=== PATIENT | female | born 1940 | race Caucasian/White ===

== ENCOUNTER 2017-08-06 13:47 | Observation (INO) | payer MEDICARE, OTHER ==
[2017-08-06 14:20] LABS: #Monocytes 0.9 thou/uL (0.11-0.59); #Neutrophils 6.7 thou/uL (1.40-6.50); %Basophils 0.3 % (0.0-1.0); %Eosinophils 0.5 % (0.0-10.0); %Lymphocytes 20.4 % (21.0-51.0); %Monocytes 9.3 % (0.0-10.0); %Neutrophils 69.5 % (42.0-75.0); Hemoglobin 13.5 g/dL (12.0-16.0); Mean Corpuscular HGB CONC 32.5 g/dL (32.0-36.0); Mean Corpuscular Hemoglobin 26.6 pg (27.0-31.0); Mean Platelet Volume 9.1 fL (7.4-10.4); Platelet Count 223 thou/uL (130-400); RBC Distribution Width 16.6 % (11.5-14.5); Red Blood Cell (RBC) Count 5.05 mill/uL (4.20-5.40); White Blood Cell (WBC) Count 9.6 thou/uL (4.8-10.8)
[2017-08-06 14:40] LABS: ALT (SGPT) 11 U/L (8-55); AST (SGOT) 15 U/L (5-34); Albumin 4.1 g/dL (3.4-4.8); Alkaline Phosphatase 169 U/L (40-150); Anion Gap 16 mmol/L (10-20); BUN (Urea Nitrogen) 15 mg/dL (9.8-20.1); Bilirubin, Total 0.4 mg/dL (0.2-1.2); CK (CPK) 34 U/L (29-168); Calc. Creatinine Clearance 0 mL/min (70-130); Calcium 10.2 mg/dL (7.8-10.44); Carbon Dioxide 22 mmol/L (23-31); Chloride 103 mmol/L (98-107); Estimated GFR-MDRD 50; Globulin 3.6 g/dL (2.4-3.5); Glucose 103 mg/dL (83-110); Lipase 9 U/L (8-78); Potassium 4.2 mmol/L (3.5-5.1); Protein, Total 7.7 g/dL (6.0-8.3); Sodium 137 mmol/L (136-145)
[2017-08-06 14:43] LABS: CKMB 0.5 ng/mL (0-6.6); Troponin I Less than 0.010 ng/mL (< 0.028)
[2017-08-06] MEDS ORDERED: Nitroglycerin 2% Ointment 1 INCH/1 GM Packet ONE ×2 (14:51→14:54)
[2017-08-06] MEDS ORDERED: ISOVUE-370 76%-LOCM 1 ML ONE (15:09)
--- NOTE | 2017-08-06 15:28 | RAD ---
FRONTAL RADIOGRAPH CHEST: 08/06/2017 HISTORY: Chest pain. COMPARISON: None. FINDINGS: There is increased linear interstitial density noted bilaterally. There is atherosclerotic calcifica tion of the aortic arch. There is a total shoulder arthroplasty on the left. No pneumothorax, pleur al fluid, lobar consolidation, or alveolar edema. Mild asymmetric increased linear density is noted in the lateral left base, suggesting volume loss or scar. IMPRESSION: No lobar consolidation or alveolar edema. POS: NOMI
[2017-08-06] MEDS ORDERED: Dextrose 50% Abboject 50 ML SYRINGE SLOW IVP PRN (16:04)
[2017-08-06] MEDS ORDERED: Acetaminophen 325 MG TAB PO PRN (16:04)
[2017-08-06] MEDS ORDERED: Nitroglycerin 0.4 MG TAB (25 Tab Bottle) PO PRN (16:04)
[2017-08-06] MEDS ORDERED: Guaifenesin DM 100-10/5 ML UDCUP PO PRN (16:04)
[2017-08-06] MEDS ORDERED: Dextrose 5% in Water 1,000 ML IV PRN (16:04)
--- NOTE | 2017-08-06 16:22 | HP ---
REASON FOR ADMISSION: Chest pain. HISTORY OF PRESENT ILLNESS: The patient gives history of left-sided chest pain with radiation to the back which started 4 or 5 days back. This has been progressively getting worse. Also, the pain las ts for 5-10 seconds and it is a sharp stabbing pain. The intensity of pain is around 10/10 when it c omes on. There are no aggravating or relieving factors. Has chronic cough due to her smoking habit. No complaints of fever. Has not had any prior cardiac workup per patient. She normally ambulates very minimally inside the house. PAST MEDICAL AND SURGICAL HISTORY: Diabetes mellitus type 2, COPD, right knee replacement, left shou lder replacement, back surgery for disk related issue, prior lap band surgery with removal, obesity. CURRENT MEDICATIONS: Metformin 500 mg p.o. twice daily, Lantus 32 units subcutaneously daily, NovoLo g 14 units subcu 3 times daily, levothyroxine unknown dose, Myrbetriq 25 mg daily. ALLERGIES: No known drug allergies. PERSONAL HISTORY: Smokes one pack a day and has been doing so for the last 50 years. No complaints of alcohol or drugs. Lives with her of 45 years. FAMILY HISTORY: Mother at the age of 31 years. She likely of uterine or ovarian cancer. Father at the age of 77 years. He has had history of pericardial effusion. CODE STATUS: FULL. REVIEW OF SYSTEMS: The following complete review of systems was negative, unless otherwise mentioned in the HPI or below: Constitutional: Weight loss or gain, ability to conduct usual activities. Skin: Rash, itching. Eyes: Double vision, pain. ENT/Mouth: Nose bleeding, neck stiffness, pain, tenderness. Cardiovascular: Palpitations, dyspnea on exertion, orthopnea. Respiratory: Shortness of breath, wheezing, cough, hemoptysis, fever or night sweats. Gastrointestinal: Poor appetite, abdominal pain, heartburn, nausea, vomiting, constipation, or diarr hea. Genitourinary: Urgency, frequency, dysuria, nocturia. Musculoskeletal: Pain, swelling. Neurologic/Psychiatric: Anxiety, depression. Allergy/Immunologic: Skin rash, bleeding tendency. PHYSICAL EXAMINATION: GENERAL: The patient is a 76-year-old female who is currently not in any acute distress. VITAL SIGNS: Blood pressure 164/80, pulse 88 per minute, respiratory rate 20 per minute, temperature 98.8 degrees Fahrenheit, and saturating 92% on room air. NECK: Supple, no elevated JVD. EYES: Extraocular muscles intact. Pupils reacting to light. ORAL CAVITY: Mucous membranes are moist. No exudates or congestion. CARDIOVASCULAR SYSTEM: S1, S2 heard. Regular rhythm. RESPIRATORY SYSTEM: Air entry 1+ bilateral. Scattered wheezes plus bilaterally. ABDOMEN: Soft, bowel sounds heard. No tenderness, rigidity or guarding. EXTREMITIES: Mild peripheral edema, no calf tenderness. VASCULAR SYSTEM: Peripheral pulses 1+ bilateral, no ischemic ulcerations or gangrene. CENTRAL NERVOUS SYSTEM: No gross focal deficits seen. Patient is alert, awake, and oriented well. PSYCHIATRIC SYSTEM: The patient's mood is euthymic. No hallucinations or delusions. IMAGING DATA AND LABORATORY DATA: EKG done shows sinus rhythm at 83 beats per minute, no gross ST-T wave changes. White count of 9, hemoglobin and hematocrit 13 and 41, platelet count 223 with 69% gabi trophils, MCV is 82. D-dimer is 1.79, serum bicarbonate 22, BUN 15, creatinine 1.0. Liver enzymes w ithin normal limits. Alkaline phosphatase is 169. First set of cardiac enzymes are negative. Album in is 4.1, lipase is 9. Chest x-ray done shows findings suggestive of pulmonary vascular congestion. BNP is 22. CLINICAL IMPRESSION AND PLAN: Patient will be under observation on telemetry for chest pain, rule ou t acute coronary syndrome. We will obtain two more sets of cardiac enzymes. We will follow ACS evid ence based protocol and she will have nuclear stress test and echo with 2D Doppler as well. The brandon ent has signs of COPD and mild exacerbation with wheezing and smoking for nearly 50 years or so now. She will be on some mild dose of IV steroids along with DuoNebs q.6 hourly. She has multiple risk f actors for acute coronary syndrome. We will continue to closely monitor her on telemetry. She will be on full dose aspirin, small dose of Coreg and we will continue Lantus at 30 units subcu at bedtime , Synthroid 50 mcg, until we know her home dose and Myrbetriq for her urinary incontinence. Power of trade mark attorney is her . CODE STATUS: FULL.
--- NOTE | 2017-08-06 16:32 | CT ---
CT ANGIO OF CHEST WITH CONTRAST: 08/06/17 Multiple axial tomograms obtained through chest following pulmonary angio protocol with multiplanar r econstruction and 3D postprocessing. INDICATIONS: Chest pain. Cough and shortness of breath. Assess for pulmonary embolus. FINDINGS: Renal arteries show adequate opacification. No evidence of pulmonary embolus identified. Thoracic aor ta is poorly opacified; however, there is no evidence of thoracic aortic dissection. The lungs show changes of COPD with mild interstitial prominence and parenchymal stranding. No eviden ce of effusion or infiltrate. Nonspecific mediastinal lymph nodes are noted. There is a 2.0 cm paratracheal lymph node with interna l calcifications. Subcarinal lymph nodes are present. Nonspecific hilar nodes are noted. Images through the upper abdomen show granulomatous calcifications in the liver and spleen. Review of the bone windows reveals nonspecific areas of sclerosis involving the thoracic vertebrae. T hese areas of abnormal sclerosis could represent sclerotic metastatic lesions. Recommend clinical cor relation regarding neoplasm and consider further evaluation with bone scan. IMPRESSION: 1. No evidence of pulmonary embolus. 2. Nonspecific mediastinal and hilar lymph nodes with a paratracheal lymph node showing internal calcifications probably as the result of prior granulomatous infection. There are granulomatous calc ifications seen in the liver and spleen. 3. There are chronic lung parenchymal changes without evidence of acute infiltrate or effusion. 4. Abnormal areas of sclerosis seen in the thoracic vertebra. Consider further evaluation with bone scan. POS: NOMI
[2017-08-06 17:37] VITALS: BMI 33.0
[2017-08-06 18:41] LABS: Troponin I Less than 0.010 ng/mL (< 0.028)
[2017-08-06] MEDS ORDERED: diphenhydrAMINE 25 MG CAP PO PRN (20:48)
[2017-08-06 20:56] LABS: Troponin I Less than 0.010 ng/mL (< 0.028)
[2017-08-06] MEDS ORDERED: Insulin Glargine 30 UNITS in Pre-Filled Syringe 1 EACH SC SCH (21:00)
[2017-08-06] MEDS ORDERED: Pregabalin 75 MG CAP PO SCH (21:00)
[2017-08-06] MEDS: Famotidine 20 MG TAB PO SCH (21:22)
[2017-08-06] MEDS: Carvedilol 3.125 MG TAB PO SCH (21:23)
[2017-08-06] MEDS: Docusate 100 MG CAP PO SCH (21:23)
[2017-08-06] MEDS: HumaLOG 300 UNITS/3 ML VIAL SC PRN (21:32)
[2017-08-07 05:00] LABS: #Lymphocytes 0.9 thou/uL (1.20-3.40); #Monocytes 0.2 thou/uL (0.11-0.59); #Neutrophils 5.6 thou/uL (1.40-6.50); %Basophils 0.5 % (0.0-1.0); %Eosinophils 0.2 % (0.0-10.0); %Lymphocytes 12.6 % (21.0-51.0); %Monocytes 3.4 % (0.0-10.0); %Neutrophils 83.4 % (42.0-75.0); Hemoglobin 13.1 g/dL (12.0-16.0); Mean Corpuscular HGB CONC 33.1 g/dL (32.0-36.0); Mean Corpuscular Hemoglobin 27.1 pg (27.0-31.0); Mean Corpuscular Volume 81.8 fl (81.0-99.0); Platelet Count 208 thou/uL (130-400); RBC Distribution Width 16.3 % (11.5-14.5); Red Blood Cell (RBC) Count 4.82 mill/uL (4.20-5.40); White Blood Cell (WBC) Count 6.7 thou/uL (4.8-10.8)
[2017-08-07 05:31] LABS: Anion Gap 14 mmol/L (10-20); BUN (Urea Nitrogen) 14 mg/dL (9.8-20.1); Calc. Creatinine Clearance 66 mL/min (70-130); Carbon Dioxide 22 mmol/L (23-31); Cardiac Risk 4.1 (Less than 4.5); Chloride 105 mmol/L (98-107); Cholesterol 231 mg/dl (< 200 Desired); Estimated GFR-MDRD 50; Glucose 242 mg/dL (83-110); HDL Cholesterol 57 mg/dL (>60 Neg Risk); LDL Cholesterol, Calculated 155 mg/dL; Potassium 5.2 mmol/L (3.5-5.1); Sodium 136 mmol/L (136-145); Triglycerides 93 mg/dL (Less than 150)
[2017-08-07] MEDS ORDERED: Levothyroxine Sodium 50 MCG TAB PO SCH (06:00)
[2017-08-07] MEDS ORDERED: Insulin Glargine 30 UNITS in Pre-Filled Syringe 1 EACH SC SCH (09:00)
[2017-08-07] MEDS ORDERED: Enoxaparin Sodium 40 MG/0.4 ML SYRINGE SC SCH (09:00)
[2017-08-07] MEDS ORDERED: Aspirin 325 MG TAB PO SCH (09:00)
[2017-08-07] MEDS: Famotidine 20 MG TAB PO SCH (09:56)
[2017-08-07] MEDS: Docusate 100 MG CAP PO SCH (09:56)
[2017-08-07] MEDS: Carvedilol 3.125 MG TAB PO SCH (09:57)
[2017-08-07] MEDS: HumaLOG 300 UNITS/3 ML VIAL SC PRN (11:03)
[2017-08-07 11:19] VITALS: TEMP 98.3
--- NOTE | 2017-08-07 11:21 | PDOC.PN ---
- Subjective Encounter Start Date: 08/07/17 Encounter Start Time: 11:30 Subjective: feels better, no sob - Objective MAR Reviewed: Yes Vital Signs & Weight: Vital Signs (12 hours) Temp Pulse Resp BP BP Pulse Ox 08/07/17 08:11 98.6 F 84 12 163/75 H 94 L 08/07/17 07:25 98.6 F 84 12 08/07/17 06:41 80 14 08/07/17 04:18 70 166/74 H 08/07/17 03:00 97.7 F 78 22 H 192/77 H 91 L 08/07/17 00:24 98.4 F 78 20 135/65 90 L I&O: 08/06/17 08/07/17 08/08/17 06:59 06:59 06:59 Intake Total 250 Balance 250 Result Diagrams: 08/07/17 04:20 08/07/17 04:20 Additional Labs: Accuchecks 08/06/17 08/06/17 08/06/17 20:41 18:14 17:29 POC Glucose 262 H 116 H 64 L Phys Exam - Physical Examination HEENT: PERRLA, moist MMs Neck: no JVD, supple Respiratory: no wheezing, no rales rhonchi+ Cardiovascular: RRR, no significant murmur Gastrointestinal: soft, non-tender, positive bowel sounds Musculoskeletal: no edema, pulses present Neurological: non-focal, moves all 4 limbs Psychiatric: normal affect, A&O x 3 Dx/Plan (1) Atypical chest pain Code(s): R07.89 - OTHER CHEST PAIN Status: Acute (2) COPD (chronic obstructive pulmonary disease) Status: Chronic Qualifiers: COPD type: COPD with acute exacerbation Qualified Code(s): J44.1 - Chronic obstructive pulmonary disease with (acute) exacerbation (3) HTN (hypertension) Code(s): I10 - ESSENTIAL (PRIMARY) HYPERTENSION Status: Chronic Qualifiers: Hypertension type: essential hypertension Qualified Code(s): I10 - Essential (primary) hypertension (4) DM type 2 (diabetes mellitus, type 2) Status: Chronic Qualifiers: Diabetes mellitus long term care pharmacist insulin use: with long term care pharmacist use Diabetes mellitus complication status: with unspecified complications Qualified Code(s) : E11.8 - Type 2 diabetes mellitus with unspecified complications; Z79.4 - shelter (current) use of insulin; Z79.4 - long term care administrator (current) use of insulin; Z79.4 - shelter (current) use of insulin; Z79.4 - long term care administrator (current) use of insulin (5) Dyslipidemia Code(s): E78.5 - HYPERLIPIDEMIA, UNSPECIFIED Status: Acute (6) Obesity (BMI 30.0-34.9) Code(s): E66.9 - OBESITY, UNSPECIFIED Status: Chronic - Plan asp 81mg, crestor 20mg HS -: stress test is -ve -: prednisone rapid taper in 3 days -: to f/u with PCP in 1 week -: CTA chest is -ve * . Review of Systems - Medications/Allergies Allergies/Adverse Reactions: Allergies Allergy/AdvReac Type Severity Reaction Status Date / Time No Known Allergies Allergy Unverified 08/06/17 17:08 Medications: Current Medications Acetaminophen (Tylenol) 650 mg PO Q4H PRN PRN Reason: Headache/Fever or Pain Albuterol/Ipratropium (Duoneb) 3 ml NEB [id number] [facility] Last Admin: 08/07/17 06:41 Dose: 3 ml Aspirin (Aspirin) 325 mg PO DAILY [facility] Last Admin: 08/07/17 09:56 Dose: 325 mg Carvedilol (Coreg) 3.125 mg PO BID [facility] Last Admin: 08/07/17 09:57 Dose: 3.125 mg Dextrose/Water (Dextrose 50%) 25 gm SLOW IVP PRN PRN PRN Reason: Hypoglycemia Diphenhydramine HCl (Benadryl) 25 mg PO Q6H PRN PRN Reason: Insomnia Last Admin: 08/06/17 21:21 Dose: 25 mg Docusate Sodium (Colace) 100 mg PO BID [facility] Last Admin: 08/07/17 09:56 Dose: 100 mg Enoxaparin Sodium (Lovenox) 40 mg SC 0900 [facility] Last Admin: 08/07/17 09:57 Dose: 40 mg Famotidine (Pepcid) 20 mg PO BID [facility] Last Admin: 08/07/17 09:56 Dose: 20 mg Glucagon (Glucagon) 1 mg IM PRN PRN PRN Reason: Hypoglycemia Guaifenesin/Dextromethorphan (Robitussin Dm) 15 ml PO Q4H PRN PRN Reason: Cough Dextrose/Water (D5w) 1,000 mls @ 0 mls/hr IV .Q0M PRN; As Directed PRN Reason: Hypoglycemia Insulin Glargine 30 units/ (Miscellaneous Medication) 0.3 mls @ 0 mls/hr SC QAM [facility] Last Admin: 08/07/17 09:57 Dose: 0.3 mls Insulin Human Lispro (Humalog) 0 units SC .MODERATE SLIDING SC PRN PRN Reason: Moderate Correctional Scale Last Admin: 08/07/17 11:03 Dose: 10 unit Levothyroxine Sodium (Synthroid) 50 mcg PO 0600 [facility] Last Admin: 08/07/17 04:21 Dose: 50 mcg Methylprednisolone Sodium Succinate (Solu-Medrol) 20 mg IVP Q8HR [facility] Last Admin: 08/07/17 04:20 Dose: 20 mg Mirabegron (Myrbetriq Er) 25 mg PO DAILY [facility] Last Admin: 08/07/17 09:57 Dose: 25 mg Nitroglycerin (Nitrostat) 0.4 mg PO Q5MIN PRN PRN Reason: Chest Pain Pregabalin (Lyrica) 150 mg PO QPM [facility] Last Admin: 08/06/17 21:22 Dose: 150 mg
--- NOTE | 2017-08-07 11:42 | NM ---
CARDIAC SPECT: CLINICAL HISTORY: 76-year-old female with chest pain, COPD, diabetes, and smoker. TECHNIQUE: A stress-only myocardial perfusion scan was performed following the intravenous administration of 28 mCi technetium-99m sestamibi. Pharmacologic stress with Lexiscan was monitored and interpreted by Dr. Gambino. FINDINGS: Fairly homogeneous tracer distribution is seen in the myocardial segments on the post stress images. GATED SPECT LVEF: 90%. WALL MOTION EXAM: Normal. IMPRESSION: Normal post stress myocardial perfusion scan. POS: NOMI
[2017-08-07 13:47] VITALS: BP 138/65
[2017-08-07] MEDS ORDERED: Regadenoson 0.4 MG/5 ML SYRINGE ONE (14:13)
--- NOTE | 2017-08-08 01:56 | DIS ---
DATE OF ADMISSION: 08/06/2017 DATE OF DISCHARGE: 08/07/2017 DISCHARGE DISPOSITION: To home. PRIMARY DISCHARGE DIAGNOSIS: Chest pain, which is noncardiac. SECONDARY DISCHARGE DIAGNOSES: Mild chronic obstructive pulmonary disease exacerbation, hypertension, diabetes mellitus type 2, obesity, dyslipidemia. PROCEDURES DONE DURING HOSPITALIZATION: CT angio chest done in the ER on arrival, which showed no evidence of pulmonary embolus. There are nonspecific mediastinal and hilar lymph nodes with paratracheal lymph node showing internal calcification probably prior granulomatous infection. No acute infiltrate or effusions were seen. Patient was also noted to have abnormal areas of sclerosis in the thoracic vertebra, which needs further outpatient evaluation with a bone scan via her primary care physician. Nuclear stress test done showed normal myocardial perfusion scan with normal wall motion and EF of 90%. Echo with 2D Doppler showed an EF of 55%-60%, mild concentric LVH was seen, mildly elevated pulmonary artery pressure was seen. LABORATORY DATA: H&H 13 and 39, platelet count 208. D-dimer was 1.79 on the day of admission. Total cholesterol 231, triglycerides 93, LDL 155, HDL 57. Troponin x2 was negative. CK-MB 0.5. DISCHARGE MEDICATIONS: Aspirin 81 mg p.o. daily, albuterol inhaler q.6 hourly p.r.n., Symbicort inhaler 160/4.5 mcg 2 puffs twice daily, Lantus 32 units subcutaneously daily, NovoLog 14 units subcutaneous 3 times daily before meals, prednisone 5 mg p.o. daily for 3 days for rapid taper, Glucophage 500 mg p.o. twice daily, Lyrica 150 mg p.o. q.p.m., Crestor 20 mg p.o. at bedtime. ALLERGIES: No known drug allergies. DISCHARGE PLAN: Patient to follow up with primary care physician in 1 week, will likely need bone scan. BRIEF COURSE DURING HOSPITALIZATION: Patient initially came in with complaints of left-sided chest pain with radiation to the back. This was ongoing for the last 4-5 days. In view of multiple risk factors, patient was placed under observation on telemetry. She has had ACS evidence based protocol followed with 2 sets of troponin being negative and a nuclear stress test done showed no reversible ischemia. Her echo also revealed normal wall motion with normal ejection fraction. A CT angio chest done showed abnormal sclerosis seen in the thoracic vertebra and this needs to be further evaluated with a bone scan in the outpatient setting via primary care physician. She has otherwise remained hemodynamically stable. She had mild COPD exacerbation and was given IV steroids along with nebulization and has been advised to take 5 mg of prednisone daily for the next 3 days and to stop for rapid taper. She is otherwise hemodynamically stable and will be shortly discharged home. Please see a [id number] documentation for the day of discharge on [facility]. GAUTAM
[2017-08-08] MEDS ORDERED: Famotidine 20 MG TAB PO SCH (09:00)
== END 2017-08-07 16:04 | disposition home or self-care (01) ==
LOC: ERS 13:47 → 2SW 16:54
PROVIDERS: ADMIT Internal Medicine; ATTEND Internal Medicine
DX: R07.89 Other chest pain (principal); E11.9 Type 2 diabetes mellitus without complications; J44.9 Chronic obstructive pulmonary disease, unspecified; E78.5 Hyperlipidemia, unspecified; E66.9 Obesity, unspecified; I10 Essential (primary) hypertension; Z79.4 Long term (current) use of insulin; Z79.82 Long term (current) use of aspirin; Z79.899 Other long term (current) drug therapy; Z68.33 Body mass index [BMI] 33.0-33.9, adult
CPT/HCPCS: 71045; 71275; 78452; 80048; 80053; 80061; 82550; 82553; 82962 ×2; 83690; 83880; 84484 ×2; 85025 ×2; 85379; 93005; 93017; 93306; 94640 ×2; 96361; 96372; 96374; 96376; 97139; 99285; A9500; G0378; G8978; G8979; G8980; 36415; 36416; 96360; J1650; J2785; J2920; J7620